=== PATIENT | male | born 2000 | race Caucasian/White ===

== ENCOUNTER 2020-12-23 00:32 | Emergency (ER) | payer OTHER ==
[2020-12-23 01:40] LABS: HEMOGLOBIN 15.7 gm/dl (14.0-17.5); RED BLOOD COUNT 5.09 M/UL (4.20-5.50); WHITE BLOOD COUNT 12.7 K/UL (4.5-11.0)
[2020-12-23 01:55] LABS: BUN/CREATININE RATIO 11 (0-10)
[2020-12-23] MEDS ORDERED: FLOMAX 0.4 MG0.4 MG PO (03:39)
[2020-12-23] MEDS ORDERED: TORADOL 10 MG T10 MG PO (03:39)
[2020-12-23] MEDS ORDERED: ONDANSETRON ODT4 MG SL (03:39)
== END 2020-12-23 03:54 | disposition home or self-care (01) ==
LOC: ER1 00:32
PROVIDERS: Student in an Organized Health Care Education/Training Program
DX: N20.0 Calculus of kidney (principal); F17.200 Nicotine dependence, unspecified, uncomplicated; R31.9 Hematuria, unspecified; F17.210 Nicotine dependence, cigarettes, uncomplicated
CPT/HCPCS: 80053; 81001; 82150; 83690; 85025; 96374; 96375; 99284; J1885; J2405